=== PATIENT | female | born 1935 | race Hispanic/Latino ===

== ENCOUNTER 2020-02-18 22:27 | Emergency (ER) | payer OTHER ==
[~2020-02-18] VITALS: Ht 144.8 cm; Wt 71.7 kg
[2020-02-18] MEDS ORDERED: PIPER-TAZ 3.375 GM 50 ML ONE (23:02)
[2020-02-18] MEDS ORDERED: ACETAMINOPHEN 325 MG TAB ONE (23:02)
[2020-02-18] MEDS ORDERED: ACETAMINOPHEN 325 MG TAB PO ONE (23:15)
[2020-02-18] MEDS ORDERED: PIPER-TAZ 3.375 GM 50 ML IV ONE (23:15)
[2020-02-18 23:22] LABS: BASOPHILS % 0.2 % (0.0-1.0); EOSINOPHILS % 0.1 % (0.0-6.0); HEMATOCRIT 33.8 % (34.2-44.1); HEMOGLOBIN 11.2 g/dL (12.0-16.0); LYMPHOCYTES # (AUTO) 0.6 (1.0-3.2); LYMPHOCYTES % 3.6 % (18.0-39.1); MEAN CORPUSCULAR HEMOGLOBIN 26.6 pg (28-32); MEAN CORPUSCULAR HGB CONC 33.1 g/dL (31-35); MEAN CORPUSCULAR VOLUME 80.3 fL (81-99); MONOCYTES # (AUTO) 1.5 (0.2-0.8); MONOCYTES % 8.9 % (4.4-11.3); NEUTROPHILS # (AUTO) 14.4 (2.1-6.9); NEUTROPHILS % 86.1 % (38.7-80.0); PLATELET COUNT 152 x10e3/uL (140-360); RED BLOOD COUNT 4.21 x10e6/uL (3.6-5.1); RED CELL DISTRIBUTION WIDTH 15.3 % (11.7-14.4)
[2020-02-18 23:39] LABS: ALBUMIN 2.9 g/dL (3.5-5.0); ALBUMIN/GLOBULIN RATIO 0.7 (0.8-2.0); ANION GAP 14.8 mmol/L (8-16); CALCIUM 8.5 mg/dL (8.4-10.2); CREATININE, SERUM 2.41 mg/dL (0.57-1.11); POTASSIUM 3.8 mmol/L (3.5-5.1)
[2020-02-19] MEDS ORDERED: DIATRIZOATE MEGL/DIATRIZOA SOD 30 ML BTL PO ONE (00:47)
[2020-02-19] MEDS ORDERED: KETOROLAC TROMETHAMINE 30 MG/ML VIAL IV STA (00:49)
[2020-02-19 02:27] LABS: BILIRUBIN,URINE SMALL (NEGATIVE); CLARITY,URINE CLOUDY (CLEAR); COLOR,URINE YELLOW (YELLOW); KETONES,URINE NEGATIVE (NEGATIVE); LEUKOCYTE ESTERASE ,URINE 1+ (NEGATIVE); NITRITE,URINE NEGATIVE (NEGATIVE); PROTEIN,URINE DIPSTICK >=300 (NEGATIVE); URINE UROBILINOGEN 4 mg/dL (0.2 - 1)
[2020-02-19 02:28] LABS: BACTERIA,URINE MANY /HPF; EPITHELIAL CELLS,URINE FEW /LPF; WBC,URINE (MAN) >50 /HPF (0-5)
--- NOTE | 2020-02-19 03:12 | Diagnostic Imaging Report ---
EXAM: CT Abdomen and Pelvis WITHOUT contrast INDICATION: Abdominal pain, febrile, flank and suprapubic pain. COMPARISON: None. TECHNIQUE: Abdomen and pelvis were scanned utilizing a multidetector helical scanner from the lung base to the pubic symphysis without administration of IV contrast. Absence of intravenous contrast decreases sensitivity for detection of focal lesions and vascular pathology. Coronal and sagittal reformations were obtained. Stone protocol is performed. IV CONTRAST: None. ORAL CONTRAST: Gastrografin RADIATION DOSE: Total DLP: 583.6 mGy*cm Estimated effective dose: (DLP x 0.015 x size factor) mSv COMPLICATIONS: None FINDINGS: LINES and TUBES: None. LOWER THORAX: Calcified granuloma in the left lower lobe. Patchy opacity within the lingula, likely atelectasis. Mitral annular calcifications. Aortic valvular calcifications. Tiny hiatal hernia. HEPATOBILIARY: Subcentimeter hepatic hypodensities are too small to characterize, but likely represent cysts. No biliary ductal dilation. GALLBLADDER: No radio-opaque stones or sludge. No wall thickening. SPLEEN: No splenomegaly. PANCREAS: No focal masses or ductal dilatation. ADRENALS: No adrenal nodules KIDNEYS/URETERS: Bilateral perinephric and periureteral stranding. 1.4 cm right mid pole renal cyst. 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 No evidence of stone or hydronephrosis. GI TRACT: No abnormal distention, wall thickening, or evidence of bowel obstruction. Per clinical history, the patient is status post appendectomy. Distal colonic diverticulosis without evidence of diverticulitis. PELVIC ORGANS/BLADDER: Status post hysterectomy. The bladder is partially decompressed and appears circumferentially mildly thick-walled. LYMPH NODES: No lymphadenopathy. VESSELS: There is mild atherosclerotic disease in the aorta and major arterial branches. PERITONEUM / RETROPERITONEUM: No free air or fluid. BONES: No acute osseous abnormality. No suspicious lytic or blastic lesions. Degenerative disc changes, most pronounced at L2-L3. Multilevel facet degenerative changes. Dextroconvex curvature of the lumbar spine. SOFT TISSUES: Unremarkable. IMPRESSION: Findings suggestive of cystitis/ascending urinary infection in the appropriate clinical setting. No evidence of stone or hydronephrosis. Signed by: Dr. Shanti Rosado MD on 02/19/2020 3:09 AM
[2020-02-19 03:24] VITALS: BP 127/55
== END 2020-02-19 03:43 | disposition home or self-care (01) ==
LOC: ER 22:27
DX: R10.30 Lower abdominal pain, unspecified (principal); N30.91 Cystitis, unspecified with hematuria; N28.9 Disorder of kidney and ureter, unspecified; I70.0 Atherosclerosis of aorta
CPT/HCPCS: 36415; 74176; 80053; 81001; 82550; 82553; 83605; 84484; 85025; 87040; 87071; 87186; 87205; 87400; 93005; 99284; J2543